=== PATIENT | female | born 2005 | race Two or more races ===

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

== ENCOUNTER 2023-03-01 21:08 | Emergency (ER) | payer MEDICAID, OTHER ==
[~2023-03-01] VITALS: Ht 162.6 cm; Wt 92.1 kg
[2023-03-01 21:38] VITALS: BP 123/86; TEMP 98.4
[2023-03-01] MEDS ORDERED: HYDROCODONE/APAP 5/325MG TABLET PO ONE (23:00)
[2023-03-01] MEDS ORDERED: HYDROCODONE/APAP 5/325MG TABLET ONE (23:28)
[2023-03-01] MEDS ORDERED: IBUP-1955 PO (23:58)
[2023-03-01] MEDS ORDERED: ACET-2605 PO (23:58)
[2023-03-02] MEDS ORDERED: TRAM50TA2 PO (00:07)
[2023-03-02 00:19] VITALS: O2SAT 99
== END 2023-03-02 00:20 | disposition home or self-care (01) ==
LOC: ER 21:14
DX: S92.515A Nondisplaced fracture of proximal phalanx of left lesser toe(s), initial encounter for closed fracture (principal); Z60.2 Problems related to living alone; W50.0XXA Accidental hit or strike by another person, initial encounter; Y93.89 Activity, other specified; Y92.89 Other specified places as the place of occurrence of the external cause; Y99.8 Other external cause status
CPT/HCPCS: 73660-TC

== ENCOUNTER 2023-05-17 22:33 | Emergency (ER) | payer MEDICAID ==
[~2023-05-17] VITALS: Ht 162.6 cm; Wt 94.3 kg
[~2023-05-17 22:33] MED LIST: ACET-2605 PO; TRAM50TA2 PO
[2023-05-17 23:21] VITALS: BP 139/99; TEMP 98.2
[2023-05-18] MEDS ORDERED: METOCLOPRAMIDE HCL 10 MG/2 ML VIAL ONE (00:02)
[2023-05-18] MEDS ORDERED: diphenhydrAMINE HCL 50 MG/ML VIAL ONE (00:02)
[2023-05-18] MEDS ORDERED: SUMATRIPTAN SUCCINATE 6 MG/0.5 ML VIAL SQ ONE (00:02)
[2023-05-18] MEDS ORDERED: IBUPROFEN 600 MG TABLET ONE (00:03)
[2023-05-18] MEDS: diphenhydrAMINE HCL 50 MG/ML VIAL IM ONE (00:12)
[2023-05-18] MEDS: METOCLOPRAMIDE HCL 10 MG/2 ML VIAL IM ONE (00:12)
[2023-05-18] MEDS: IBUPROFEN 600 MG TABLET PO ONE (00:14)
[2023-05-18] MEDS: SUMATRIPTAN SUCCINATE 6 MG/0.5 ML VIAL SQ ONE (00:15)
[2023-05-18] MEDS ORDERED: KETO10TA2 PO (01:07)
[2023-05-18] MEDS ORDERED: SUMA100T16 PO (01:07)
[2023-05-18] MEDS ORDERED: METO-295 PO (01:07)
[2023-05-18 01:23] VITALS: O2SAT 100
== END 2023-05-18 01:23 | disposition home or self-care (01) ==
LOC: ER 22:36
DX: G43.909 Migraine, unspecified, not intractable, without status migrainosus (principal); Z79.899 Other long term (current) drug therapy
CPT/HCPCS: 99284; 96372 ×2; J1200; J3030; J2765

== ENCOUNTER 2023-10-31 19:57 | Emergency (ER) | payer MEDICAID ==
[~2023-10-31] VITALS: Ht 162.6 cm; Wt 95.3 kg
[~2023-10-31 19:57] MED LIST changes: +KETO10TA2 PO; +METO-295 PO; +SUMA100T16 PO
[2023-10-31] MEDS ORDERED: ACETAMINOPHEN ES 500 MG TABLET ONE (21:04)
[2023-10-31] MEDS: ACETAMINOPHEN ES 500 MG TABLET PO ONE (21:06)
[2023-10-31 21:08] LABS: BASOPHILS # (AUTO) 0.1 K/uL (0.0-0.2); BASOPHILS % (AUTO) 0.8 % (0.0-2.0); EOSINOPHILS # (AUTO) 0.2 K/uL (0.0-0.7); EOSINOPHILS % (AUTO) 2.4 % (0.0-6.0); HEMATOCRIT 39 % (33-45); HEMOGLOBIN 12.9 g/dL (11.5-14.8); LYMPHOCYTES # (AUTO) 3.1 K/uL (0.8-4.8); LYMPHOCYTES % (AUTO) 36.5 % (20.0-44.0); MEAN CORPUSCULAR HEMOGLOBIN 26 PG (26.0-33.0); MEAN CORPUSCULAR HGB CONC 33 g/dl (31.0-36.0); MEAN CORPUSCULAR VOLUME 80 fL (82-100); MONOCYTES # (AUTO) 0.6 K/uL (0.1-1.30); MONOCYTES % (AUTO) 6.9 % (2.0-12.0); NEUTROPHILS # (AUTO) 4.5 K/uL (1.8-8.9); NEUTROPHILS % (AUTO) 53.4 % (43.0-81.0); PLATELET COUNT (AUTO) 459 K/uL (150-450); RED BLOOD CELL COUNT(AUTO) 4.91 MIL/uL (4.0-5.2); RED CELL DISTRIBUTION WIDTH 14.1 % (11.5-15.0); WHITE BLOOD COUNT (AUTO) 8.4 K/uL (4.3-11.0)
[2023-10-31 21:16] LABS: CALCIUM, SERUM 9.1 mg/dL (8.5-10.1); CREATININE 0.6 mg/dL (0.6-1.3); POTASSIUM 3.9 mmol/L (3.5-5.1)
[2023-10-31 21:27] LABS: ALBUMIN 3.7 g/dL (3.4-5.0); BILIRUBIN,TOTAL 0.2 mg/dL (0.2-1.0)
[2023-10-31 21:52] LABS: APPEARANCE,URINE Clear (CLEAR); BILIRUBIN,URINE Negative (NEGATIVE); BLOOD, URINE Negative Ery/uL (NEGATIVE); COLOR,URINE YELLOW (YELLOW); KETONES,URINE Negative (NEGATIVE); LEUKOCYTE ESTERASE ,URINE Negative (NEGATIVE); NITRITE, URINE Negative (NEGATIVE); PROTEIN,URINE Negative (NEGATIVE); UGLUCOSE Negative (NEGATIVE); UROBILINOGEN,URINE 0.2 EU/dL (0.2)
[2023-10-31 21:53] LABS: PREGNANCY TEST URINE QUAL NEGATIVE (NEGATIVE)
[2023-11-01 04:06] VITALS: BP 131/89; TEMP 98.6; O2SAT 98
== END 2023-11-01 04:06 | disposition home or self-care (01) ==
LOC: ER 19:58
DX: R10.31 Right lower quadrant pain (principal); R10.2 Pelvic and perineal pain; W18.2XXA Fall in (into) shower or empty bathtub, initial encounter; Y93.89 Activity, other specified; Y92.091 Bathroom in other non-institutional residence as the place of occurrence of the external cause; Y99.8 Other external cause status
CPT/HCPCS: 36415; 72170-TC; 80048-TC; 80076-TC; 84702-TC; 84703-TC; 85025-TC